=== PATIENT | male | born 1975 | race Caucasian/White ===

== ENCOUNTER 2022-08-18 14:01 | Emergency (ER) | payer OTHER, SELFPAY ==
--- NOTE | ~2022-08-18 | XR_ITS ---
EXAMINATION: XR hand LT min 3V DATE: 08/18/2022 16:19 INDICATION: Left hand injury. TECHNIQUE: 3 views of left hand were obtained. COMPARISON: None. FINDINGS: Bone alignment is normal. No fracture. 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 IMPRESSION: 1. No fracture or radiopaque foreign body. Reviewed, dictated and finalized at location L.
[2022-08-18 14:59] VITALS: BP 161/94; PULSE 90; RESP 16; TEMP 37.4; O2SAT 97
--- NOTE | 2022-08-18 18:23 | ED.GENADULT ---
HPI - General Adult General Chief complaint: Wound/Laceration Stated complaint: left index finger lac Time Seen by Provider: 08/18/22 16:00 Source: patient Mode of arrival: ambulatory Limitations: no limitations History of Present Illness HPI narrative: This is a 46 yo M who presents to the ED with CC of left index finger injury occuring just [employer]. Pt reports working in the yard with hedge trimmers when they jumped up and caught him in the left hand. Reports 2 wounds to left index finger and bleeding. Denies any further site of pain or injury. Denies any numbness or weakness. Unsure of tdap status. Related Data Home Medications Medication Instructions Recorded Confirmed Wellbutrin 08/18/22 hydrochlorothiazide 08/18/22 Allergies Allergy/AdvReac Type Severity Reaction Status Date / Time No Known Allergies Allergy Verified 08/18/22 15:50 Review of Systems Constitutional: Constitutional: Reports no additional constitutional complaints Eyes: Eyes: Reports no additional eye complaints ENT: Reports system reviewed and no additional complaints, except as documented Cardiovascular: Cardiovascular: Reports as per HPI Respiratory: Respiratory: Reports as per HPI Gastrointestinal: Gastrointestinal: Reports as per HPI Genitourinary: Genitourinary: Reports no additional male genitourinary complaints Musculoskeletal: Musculoskeletal: Reports as per HPI Neurologic: Reports as per HPI Psychiatric: Psychiatric: Reports no additional psychiatric complaints Hematologic/Lymphatic: Hematologic/Lymphatic: Reports no additional hematologic/lymphatic complaints Exam Const: General: healthy appearing and no acute distress Nutritional Appearance: well nourished Orientation/consciousness: patient oriented x3 Limitations: no limitations HENMT: Head: normal to inspection Ears: external ears normal Face and sinus: normal facial exam Eyes: Conjunctivae: conjunctivae normal Pupils: Equal, round and reactive pupils present EOM: EOMs intact bilaterally Neck: Neck: normal visual inspection Chest: Chest palpation & inspection: normal inspection of the chest Resp: Effort & Inspection: normal respiratory effort Auscultation: clear to auscultation bilaterally Cardio: Rate: regular rate Rhythm: regular rhythm GI: Inspection: non-distended GI Palp: No Soft to palpation, No Tenderness to palpation present (GI), No Guarding due to palpation present (GI), No Rigid due to palpation, No Hernia present, No Palpable mass present and No Rebound tenderness present Auscultation: normal bowel sounds Skin: General skin exam: normal color Rashes: no rashes Wounds: wounds noted Other: 2 distinct wounds noted to the distal dorsal index finger. angular in nature. bleeding controlled. the most distal is 1 cm. the most proximal is 2 cm. no obvious foreign bodies. Good cap refill Neuro: General: patient oriented x3 and moves all extremities Extrem: Other: Neurovascularly intact distally Course Vital Signs Vital signs: Vital Signs Temperature 99.3 F 08/18/22 14:59 Pulse Rate 90 08/18/22 14:59 Respiratory Rate 16 08/18/22 14:59 Blood Pressure 161/94 H 08/18/22 14:59 Pulse Oximetry 97 08/18/22 14:59 Oxygen Delivery Room Air 08/18/22 14:59 Temperature 99.3 F 08/18/22 14:59 Pulse Rate 90 08/18/22 14:59 Respiratory Rate 16 08/18/22 14:59 Blood Pressure 161/94 H 08/18/22 14:59 Pulse Oximetry 97 08/18/22 14:59 Oxygen Delivery Room Air 08/18/22 14:59 Procedures Laceration Laceration 1: Date: 08/18/22 Time: 19:54 Site: hand Side (If applicable): left (index finger) Size (cm): 2 Description: flap Depth: simple, single layer Local Anesthetic: lidocaine 1% Amount of anesthesia used (mL): 2 Pre-repair: wound explored and irrigated extensively ====== Skin Level ====== Skin layer closed with: nylon
[2022-08-18] MEDS: TETANUS,DIPHTHERIA,AC PERTUSSIS ADULT (0.5 ML) BOOSTRIX (18:45)
== END 2022-08-18 18:54 | disposition home or self-care (01) ==
PROVIDERS: Emergency Provider Physician Assistant; PCP Family Medicine
DX: S61.211A Laceration without foreign body of left index finger without damage to nail, initial encounter (principal); Z23 Encounter for immunization; W29.3XXA Contact with powered garden and outdoor hand tools and machinery, initial encounter; Y93.H2 Activity, gardening and landscaping
CPT/HCPCS: 12002; 73130; 90471; 90715; 99283

== ENCOUNTER 2022-08-31 00:10 | Day surgery (SDC) | payer OTHER, SELFPAY ==
[2022-08-25 12:29] VITALS: BMI 48.1
--- NOTE | 2022-08-31 07:33 | WPDANESEPPF ---
Anes - Initial Pre Proc Eval Procedure: Operation Date: 08/31/22 09:45 Proposed Procedures p Screening Colonoscopy - Nilay Farias MD Date/Time: 08/31/22 07:33 Surgeon: Nilay Farias MD Pre Op Diagnosis: neoplasm screening Patient Data Age: 46 Gender: M Height: 1.83 m Weight: 161 kg Allergies Allergy/AdvReac Type Severity Reaction Status Date / Time No Known Allergies Allergy Verified 08/31/22 08:35 Home Medications Medication Instructions Recorded Confirmed Type amlodipine 5 mg tablet See Rx Instructions .Route 03/31/21 08/25/22 Rx .COMPLEX #90 tabs bupropion HCl 300 mg 24 hr tablet, See Rx Instructions .Route 03/31/21 08/25/22 Rx extended release .COMPLEX #90 tabs hydrochlorothiazide 25 mg tablet See Rx Instructions .Route 03/31/21 08/25/22 Rx .COMPLEX #90 tabs levothyroxine 112 mcg tablet See Rx Instructions .Route 03/31/21 08/25/22 Rx (Euthyrox) .COMPLEX #90 tabs lisinopril 10 mg tablet See Rx Instructions .Route 03/31/21 08/25/22 Rx .COMPLEX #90 tabs testosterone (AndroGel) 2 pump topical DAILY #75 grams 07/29/21 08/25/22 Rx sildenafil 100 mg tablet 100 mg PO DAILY PRN sexual 03/20/22 08/25/22 Rx activity #10 tabs diclofenac sodium 1 % topical gel 2 g topical QID PRN Pain 06/16/22 08/25/22 History sodium,potassium,mag sulfates 17.5 See Rx Instructions PO .COMPLEX 07/16/22 08/25/22 Rx gram-3.13 gram-1.6 gram oral soln #354 mL (Suprep Bowel Prep Kit) Collagen Skin Renewal 1,000 tab-cap PO DAILY 08/25/22 08/25/22 History Imodium A-D 2 mg PO 5XW 08/25/22 08/25/22 History acetaminophen 650 mg 650 mg PO Q8H PRN Pain, Mild 08/25/22 08/25/22 History tablet,extended release ascorbic acid (vitamin C) 1,000 mg 1 g PO DAILY 08/25/22 08/25/22 History capsule biotin 5,000 mcg chewable tablet 5,000 mcg PO DAILY 08/25/22 08/25/22 History calcium carb-mag oxide-vit D3 1 tab-cap PO DAILY 08/25/22 08/25/22 History ibuprofen 200 mg tablet (Advil) 200 mg PO Q6H PRN Pain, Moderate 08/25/22 08/25/22 History mecobalamin (vitamin B12) 1,000 1,000 mcg PO DAILY 08/25/22 08/25/22 History mcg chewable tablet multivitamin 1 tablet PO DAILY 08/25/22 08/25/22 History omega-3 fatty acids 1 cap PO DAILY 08/25/22 08/25/22 History thiamine HCl (vitamin B1) 250 mg 250 mg PO DAILY 08/25/22 08/25/22 History tablet Patient hx anesthesia problems: none Family hx anesthesia problems: none Results Review: All pre-operative results and documents have been reviewed as part of the pre-operative evaluation. [facility] Past Medical History Medical History (Updated 08/28/22 @ 14:55 by Christos Mcneil, DO) Anxiety Erectile dysfunction HTN (hypertension) Hypothyroidism Low testosterone DEEPALI (obstructive sleep apnea) CPAP Surgical History Surgical History (System 08/24/22 @ 11:07 by Nohemi Byrd) H/O laparoscopic adjustable gastric banding Family History Family History Father Family history of heart disease in male family member before age 55 Hypertension Social History Social History (System 08/24/22 @ 11:07 by Nohemi Byrd) Smoking packs per day: 0.5 Smoking cigarettes per day: 10.0 Years smoked: 13 Smoking pack-years: 6.50 Smoking status: Former smoker Tobacco type: cigarettes Second hand tobacco smoke exposure: No Smoking end date: 03/22/03 Alcohol intake: current Alcohol use details: rare Substance use: never Substance use type: does not use Living arrangements: with family Occupation/Education: occupation Gender identity (if verbalized by the patient): Male Sexual Orientation (if Verbalized by the Patient): Straight or Heterosexual Spiritual care concerns: No Anes - Eval Final PreProcedure Day of Procedure 08/31/22 07:33 Patient weight: morbidly obese Heart: regular rate and rhythm Lungs: clear to auscultation Airway: Mallampati scale class II Neurological: al
[2022-08-31 08:36] VITALS: BP 155/87; PULSE 75; RESP 18; TEMP 36.4; O2SAT 100
[2022-08-31] MEDS: LACTATED RINGERS 1,000 ML 150 ML IV CONT (08:54)
--- NOTE | 2022-08-31 09:11 | PM.HPGS ---
History of Present Illness History of Present Illness Consent: Risks, benefits, and alternatives have been discussed and questions answered. Patient agrees to proceed with procedure. Chief complaint: neoplasm screening Narrative: Marco Cross III is a 46 year old male Presents for screening colonoscopy. Patient's current weight appetite and bowel movements are normal. Patient denies abdominal pain. He has had no bleeding. Family history noncontributory. Review of Systems Review of Systems: Review of systems noncontributory. [facility] Past Medical History Medical History (Updated 08/31/22 @ 09:12 by Nilay Farias MD) Anxiety Erectile dysfunction HTN (hypertension) Hypothyroidism Low testosterone DEEPALI (obstructive sleep apnea) CPAP Surgical History Surgical History (System 08/24/22 @ 11:07 by Nohemi Byrd) H/O laparoscopic adjustable gastric banding Family History Family History Father Family history of heart disease in male family member before age 55 Hypertension Social History Social History (System 08/24/22 @ 11:07 by Nohemi Byrd) Smoking packs per day: 0.5 Smoking cigarettes per day: 10.0 Years smoked: 13 Smoking pack-years: 6.50 Smoking status: Former smoker Tobacco type: cigarettes Second hand tobacco smoke exposure: No Smoking end date: 03/22/03 Alcohol intake: current Alcohol use details: rare Substance use: never Substance use type: does not use Living arrangements: with family Occupation/Education: occupation Gender identity (if verbalized by the patient): Male Sexual Orientation (if Verbalized by the Patient): Straight or Heterosexual Spiritual care concerns: No Meds Home Medications and Allergies Home Medications Medication Instructions Recorded Confirmed Type amlodipine 5 mg tablet See Rx Instructions .Route 03/31/21 08/25/22 Rx .COMPLEX #90 tabs bupropion HCl 300 mg 24 hr tablet, See Rx Instructions .Route 03/31/21 08/25/22 Rx extended release .COMPLEX #90 tabs hydrochlorothiazide 25 mg tablet See Rx Instructions .Route 03/31/21 08/25/22 Rx .COMPLEX #90 tabs levothyroxine 112 mcg tablet See Rx Instructions .Route 03/31/21 08/25/22 Rx (Euthyrox) .COMPLEX #90 tabs lisinopril 10 mg tablet See Rx Instructions .Route 03/31/21 08/25/22 Rx .COMPLEX #90 tabs testosterone (AndroGel) 2 pump topical DAILY #75 grams 07/29/21 08/25/22 Rx sildenafil 100 mg tablet 100 mg PO DAILY PRN sexual 03/20/22 08/25/22 Rx activity #10 tabs diclofenac sodium 1 % topical gel 2 g topical QID PRN Pain 06/16/22 08/25/22 History sodium,potassium,mag sulfates 17.5 See Rx Instructions PO .COMPLEX 07/16/22 08/25/22 Rx gram-3.13 gram-1.6 gram oral soln #354 mL (Suprep Bowel Prep Kit) Collagen Skin Renewal 1,000 tab-cap PO DAILY 08/25/22 08/25/22 History Imodium A-D 2 mg PO 5XW 08/25/22 08/25/22 History acetaminophen 650 mg 650 mg PO Q8H PRN Pain, Mild 08/25/22 08/25/22 History tablet,extended release ascorbic acid (vitamin C) 1,000 mg 1 g PO DAILY 08/25/22 08/25/22 History capsule biotin 5,000 mcg chewable tablet 5,000 mcg PO DAILY 08/25/22 08/25/22 History calcium carb-mag oxide-vit D3 1 tab-cap PO DAILY 08/25/22 08/25/22 History ibuprofen 200 mg tablet (Advil) 200 mg PO Q6H PRN Pain, Moderate 08/25/22 08/25/22 History mecobalamin (vitamin B12) 1,000 1,000 mcg PO DAILY 08/25/22 08/25/22 History mcg chewable tablet multivitamin 1 tablet PO DAILY 08/25/22 08/25/22 History omega-3 fatty acids 1 cap PO DAILY 08/25/22 08/25/22 History thiamine HCl (vitamin B1) 250 mg 250 mg PO DAILY 08/25/22 08/25/22 History tablet Allergies Allergy/AdvReac Type Severity Reaction Status Date / Time No Known Allergies Allergy Verified 08/31/22 08:35 Vital Signs Vital Signs - 24 hr 08/31/22 08:36 Temperature 97.5 F L Pulse Rate 75 Respiratory Rate 18 Blood Pressure 155/87 H
[2022-08-31 10:05] VITALS: BP 132/78; PULSE 64; RESP 16; O2SAT 100
[2022-08-31 10:15] VITALS: BP 137/80; PULSE 59; RESP 14; O2SAT 99
[2022-08-31 10:25] VITALS: BP 136/85; PULSE 63; RESP 15; O2SAT 96
== END 2022-08-31 10:32 | disposition home or self-care (01) ==
PROVIDERS: PCP Family Medicine; Visit Provider Internal Medicine Gastroenterology
PROC: 0DJD8ZZ Inspection of Lower Intestinal Tract, Via Natural or Artificial Opening Endoscopic (ICD-10-PCS; CPT 45378; principal; 2022-08-31 09:45)
DX: Z12.11 Encounter for screening for malignant neoplasm of colon (principal); I10 Essential (primary) hypertension; E03.9 Hypothyroidism, unspecified; G47.33 Obstructive sleep apnea (adult) (pediatric); E29.1 Testicular hypofunction; F41.9 Anxiety disorder, unspecified; E66.01 Morbid (severe) obesity due to excess calories; Z68.42 Body mass index [BMI] 45.0-49.9, adult; Z87.891 Personal history of nicotine dependence
CPT/HCPCS: 45378; J2704; J7120

== ENCOUNTER 2023-10-10 12:52 | Emergency (ER) | payer OTHER, SELFPAY ==
[2023-10-10 12:53] VITALS: BP 166/84; PULSE 75; RESP 18; TEMP 36.6; O2SAT 96
--- NOTE | 2023-10-10 13:44 | ED.GENADULT ---
HPI - General Adult General Chief complaint: Back Pain/Injury Stated complaint: back pain Time Seen by Provider: 10/10/23 12:59 History of Present Illness HPI narrative: 47-year-old male with history of sciatica presented emergency department for evaluation for right back and right hip pain. 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 Patient does have prior history of sciatica in 2015 and 2018. Patient states this does feel very similar. Patient states he had pain that radiates down from his right lower back down to his knee. Patient denies any radiation of pain past the knee. Patient denies any current numbness or weakness. Patient denies any change in bowel or bladder habits. Patient has been using ibuprofen for pain control and states he does feel improved. Patient also presented to the ED for paperwork to be light duty. Related Data Home Medications Medication Instructions Recorded Confirmed Collagen Skin Renewal 1,000 tab-cap PO DAILY 08/25/22 06/08/23 Imodium A-D 2 mg PO 5XW 08/25/22 06/08/23 acetaminophen 650 mg 650 mg PO Q8H PRN Pain, Mild 08/25/22 06/08/23 tablet,extended release ascorbic acid (vitamin C) 1,000 mg 1 g PO DAILY 08/25/22 06/08/23 capsule biotin 5,000 mcg chewable tablet 5,000 mcg PO DAILY 08/25/22 06/08/23 calcium carb-mag oxide-vit D3 1 tab-cap PO DAILY 08/25/22 06/08/23 ibuprofen 200 mg tablet (Advil) 200 mg PO Q6H PRN Pain, Moderate 08/25/22 06/08/23 mecobalamin (vitamin B12) 1,000 1,000 mcg PO DAILY 08/25/22 06/08/23 mcg chewable tablet multivitamin 1 tablet PO DAILY 08/25/22 06/08/23 omega-3 fatty acids 1 cap PO DAILY 08/25/22 06/08/23 thiamine HCl (vitamin B1) 250 mg 250 mg PO DAILY 08/25/22 06/08/23 tablet Allergies Allergy/AdvReac Type Severity Reaction Status Date / Time No Known Allergies Allergy Verified 10/10/23 12:56 Review of Systems Review of Systems: All systems reviewed & are unremarkable except as noted in HPI and below PMFSH Past Medical History Medical History Anxiety Erectile dysfunction HTN (hypertension) Hypothyroidism Low testosterone DEEPALI (obstructive sleep apnea) CPAP Surgical History Surgical History H/O laparoscopic adjustable gastric banding Family History Family History Father Family history of heart disease in male family member before age 55 Hypertension Social History Social History Smoking packs per day: 0.5 Smoking cigarettes per day: 10.0 Years smoked: 13 Smoking pack-years: 6.50 Smoking status: Former smoker Tobacco type: cigarettes Second hand tobacco smoke exposure: No Smoking end date: 03/22/03 Alcohol intake: current Alcohol use details: rare Substance use: never Substance use type: does not use Living arrangements: with family Occupation/Education: occupation Gender identity (if verbalized by the patient): Male Sexual Orientation (if Verbalized by the Patient): Straight or Heterosexual Spiritual care concerns: No Exam Narrative: APPEARANCE: Well appearing, no pain, no distress, well-nourished. HEAD: normocephalic, atraumatic. EYES: PERRLA/EOMI, conjunctivae clear. NOSE: Normal no drainage NECK: Supple. No adenopathy, no masses. RESPIRATORY: Airway patent, respirations nonlabored. Clear to auscultation bilaterally, no rales, rhonchi, wheezing. CARDIOVASCULAR: Regular rate and rhythm without murmurs rubs or gallops. ABDOMINAL: Soft, nontender, nondistended, normal bowel sounds MUSCULOSKELETAL: Tenderness to right buttock NEURO: Alert. Cranial nerves II through XII intact. Good gait. Good coordination SKIN: Warm, dry. Normal Color Course Course Emergency Cou
[2023-10-10] MEDS: CYCLOBENZAPRINE HCL 10 MG TABLET PO (14:00)
[2023-10-10 14:05] VITALS: BP 154/83; PULSE 80; RESP 20; O2SAT 99
== END 2023-10-10 14:06 | disposition home or self-care (01) ==
PROVIDERS: Emergency Provider Emergency Medicine; PCP Family Medicine
DX: M54.30 Sciatica, unspecified side (principal); E03.9 Hypothyroidism, unspecified; I10 Essential (primary) hypertension; Z87.891 Personal history of nicotine dependence
CPT/HCPCS: 99283; A9270